=== PATIENT | male | born 1935 | race Caucasian/White ===

== ENCOUNTER 2021-05-14 08:40 | Day surgery (SDC) | payer MEDICARE, BC ==
[2021-05-14] MEDS ORDERED: Depo-Medrol 40 MG/ML IM ONE (08:41)
[2021-05-14] MEDS ORDERED: BUPIVACAINE 0.5% VIAL IJ ONE (08:41)
[2021-05-14] MEDS ORDERED: Xylocaine 1% Vial 30 ML PF IJ ONE (08:41)
--- NOTE | 2021-05-14 16:07 | XRAY ---
15 seconds of fluoroscopy was used in surgery for a right intra-articular knee injection.
== END 2021-05-14 10:53 | disposition home or self-care (01) ==
LOC: SDC-PAIN 08:40
PROVIDERS: ATTEND Psychiatry & Neurology Pain Medicine
DX: M17.11 Unilateral primary osteoarthritis, right knee (principal); E11.9 Type 2 diabetes mellitus without complications; I10 Essential (primary) hypertension; Z79.899 Other long term (current) drug therapy
CPT/HCPCS: 20610; 73560; 77002; 77003; 82947; J1030; J2001; Q9966

== ENCOUNTER 2021-05-28 09:34 | Day surgery (SDC) | payer MEDICARE, BC ==
[2021-05-28] MEDS ORDERED: BUPIVACAINE 0.5% VIAL IJ ONE (09:35)
[2021-05-28] MEDS ORDERED: Depo-Medrol 40 MG/ML IM ONE (09:35)
[2021-05-28] MEDS ORDERED: DIPRIVAN 200 MG/20 ML IV ONE (10:56)
--- NOTE | 2021-05-28 11:34 | XRAY ---
Indication: Right SI joint injection. Intraoperative fluoroscopy provided for 9 seconds. 2 digital spot images submitted for interpretation demonstrates posterior needle tip projecting over the inferior right SI joint. Correlate with intraoperative findings/report.
--- NOTE | 2021-05-28 11:36 | XRAY ---
Indication: Right hip greater trochanter bursa injection. Intraoperative fluoroscopy provided for 10 seconds. Single digital spot image obtained prone demonstrates needle tip projecting lateral to the right femur greater trochanter. Small amount of contrast injected for needle tip placement. Correlate with intraoperative findings/report.
--- NOTE | 2021-05-28 11:40 | XRAY ---
10 seconds fluoroscopy time in surgery for injection of the greater trochanter of the right hip.
--- NOTE | 2021-05-28 11:40 | XRAY ---
9 seconds fluoroscopy time in surgery for injection of the right SI joint.
[2021-05-28] MEDS ORDERED: Lactated Ringers 1,000 ML IV ONE (11:42)
== END 2021-05-28 11:25 | disposition home or self-care (01) ==
LOC: SDC-PAIN 09:34
PROVIDERS: ATTEND Psychiatry & Neurology Pain Medicine
DX: M46.1 Sacroiliitis, not elsewhere classified (principal); M70.61 Trochanteric bursitis, right hip; E11.9 Type 2 diabetes mellitus without complications; Z79.899 Other long term (current) drug therapy
CPT/HCPCS: 20610; 27096; 72020; 73501; 77002; 82947; 99100; J1030; J2704; Q9966; G0260

== ENCOUNTER 2021-12-03 08:38 | Day surgery (SDC) | payer MEDICARE, BC ==
[2021-12-03] MEDS ORDERED: BUPIVACAINE 0.5% VIAL IJ ONE (08:39)
[2021-12-03] MEDS ORDERED: Depo-Medrol 40 MG/ML IM ONE (08:39)
[2021-12-03] MEDS ORDERED: DIPRIVAN 200 MG/20 ML IV ONE (10:49)
[2021-12-03] MEDS ORDERED: Lactated Ringers 1,000 ML IV ONE (11:21)
--- NOTE | 2021-12-03 12:50 | XRAY ---
Indication: Bilateral SI joint injection. Intraoperative fluoroscopy provided for 21 seconds. 4 digital spot images submitted for interpretation demonstrates posterior needle tip projecting over the inferior left and right SI joints. Correlate with intraoperative findings/report..
--- NOTE | 2021-12-03 12:52 | XRAY ---
16 seconds fluoroscopy time in surgery for injections of both Greater trochanters.
--- NOTE | 2021-12-03 12:52 | XRAY ---
Indication: Bilateral greater trochanter bursa injection. Intraoperative fluoroscopy provided for 16 seconds. 2 digital spot image submitted for interpretation demonstrates needle tip lateral to the left and right right greater trochanter. Small amount of contrast injected for both needle tip placement. Correlate with intraoperative findings/report.
--- NOTE | 2021-12-03 12:52 | XRAY ---
21 seconds fluoroscopy time in surgery for injections of both SI joints.
== END 2021-12-03 11:20 | disposition home or self-care (01) ==
LOC: SDC-PAIN 08:38
PROVIDERS: ATTEND Psychiatry & Neurology Pain Medicine
DX: M46.1 Sacroiliitis, not elsewhere classified (principal); M70.62 Trochanteric bursitis, left hip; M70.61 Trochanteric bursitis, right hip; I10 Essential (primary) hypertension; E11.9 Type 2 diabetes mellitus without complications; Z79.899 Other long term (current) drug therapy
CPT/HCPCS: 20610; 27096; 72100; 73521; 77002; 82947; G0260; 99100; J1030; J2704; Q9966

== ENCOUNTER 2021-12-24 08:36 | Day surgery (SDC) | payer MEDICARE, BC ==
[2021-12-24] MEDS ORDERED: Depo-Medrol 40 MG/ML IM ONE (08:37)
[2021-12-24] MEDS ORDERED: Sodium Chloride 0.9% 10 ML FLUSH Syringe IJ ONE (08:37)
[2021-12-24] MEDS ORDERED: Lactated Ringers 1,000 ML IV ONE (10:47)
[2021-12-24] MEDS ORDERED: DIPRIVAN 200 MG/20 ML IV ONE (11:00)
--- NOTE | 2021-12-24 12:31 | XRAY ---
Indication: Caudal CAREN. Intraoperative fluoroscopy provided for 59 seconds. 2 digital spot image submitted for interpretation demonstrates posterior caudal needle tip projecting mid sacrum. Small amount of contrast injected for needle tip placement. Correlate with intraoperative findings/report.
--- NOTE | 2021-12-24 12:34 | XRAY ---
59 seconds fluoroscopy time in surgery for caudal CAREN.
== END 2021-12-24 11:28 | disposition home or self-care (01) ==
LOC: SDC-PAIN 08:36 → EDSTATUS 11:31
PROVIDERS: ATTEND Psychiatry & Neurology Pain Medicine
DX: M54.16 Radiculopathy, lumbar region (principal); E11.9 Type 2 diabetes mellitus without complications; Z79.899 Other long term (current) drug therapy
CPT/HCPCS: 62323; 72100; 77003; 82947; J1030; J2704; Q9966

== ENCOUNTER 2024-07-06 10:55 | Day surgery (SDC) | payer MEDICARE, BC ==
--- NOTE | 2024-07-05 08:55 | HP ---
HISTORY AND PHYSICAL HISTORY OF PRESENT ILLNESS: The patient is an 88-year-old male who presents with complaints of dysphagia. He had some chicken and steak get stuck. He has no prior dilatation in the past. He does not complain of any heartburn. PAST MEDICAL HISTORY: COPD, heart disease, thyroid, diabetes, prostate cancer, coronary artery disease, CHF, irritable bowel, hyperlipidemia, arthritis, hypertension, allergic rhinitis, PVD, TMJ, colitis, dermatitis. MEDICATIONS: Metoprolol, levothyroxine, hydroxyzine, glipizide, gabapentin, iron, Bumex, Aldactone, Tylenol, Xarelto, tamsulosin, potassium, MiraLAX, pentoxifylline, losartan, cyclobenzaprine, vitamin D. ALLERGIES: Negative. PAST SURGICAL HISTORY: Cholecystectomy, back surgery, [employer] posterior tibial artery. SOCIAL HISTORY: Negative. FAMILY HISTORY: Heart disease. REVIEW OF SYSTEMS: CONSTITUTIONAL: Denies fever or chills. CHEST: Denies shortness of breath. CARDIOVASCULAR: Denies chest pain. ABDOMEN: Denies abdominal pain. PHYSICAL EXAMINATION: GENERAL: No acute distress. CARDIOVASCULAR: Regular rate and rhythm. RESPIRATORY: Nonlabored. No shortness of breath. ABDOMEN: Soft. ASSESSMENT: Dysphagia. PLAN: EGD and possible dilatation with Dr. Marin Raymond. This report was dictated for Dr. Raymond by Poly Schulte NP.
[2024-07-06] MEDS ORDERED: Lactated Ringers 1,000 ML IV ONE (11:12)
[2024-07-06] MEDS ORDERED: Lactated Ringers 1,000 ML IV SCH (11:30)
[2024-07-06 11:35] LABS: Absolute Neutrophil Ct (ANC) 4.11 x10^3/uL (1.78-5.38); BASOPHIL % 0.6 % (0.2-1.2); Basophil (Absolute #) 0.04 x10^3/uL (0.01-0.08); Eosinophil % 7.2 % (0.8-7.0); Eosinophil (Absolute #) 0.45 x10^3/uL (0.04-0.54); Hematocrit 32.1 % (40.1-51.0); Hemoglobin 10.6 g/dL (13.7-17.5); IMMATURE GRAN # 0.07 x10^3u/L (0.001-0.031); IMMATURE GRAN % 1.1 % (0.001-0.429); Lymphocyte (Absolute #) 0.72 x10^3/uL (1.32-3.57); Lymphocytes % 11.6 % (21.8-53.1); Mean Cell Volume 95.3 fL (79.0-92.2); Mean Corpuscular Hemoglobin 31.5 pg (25.7-32.2); Mean Platelet Volume 10.5 fL (9.4-12.4); Monocyte (Absolute #) 0.84 x10^3/uL (0.30-0.82); Monocytes % 13.5 % (5.3-12.2); Platelet Count 176 x10^3/uL (163-337); Red Blood Count 3.37 x10^6/uL (4.63-6.08); Red Cell Distribution Width 14.5 % (11.6-14.4); White Blood Count 6.2 x10^3/uL (4.23-9.07)
[2024-07-06 11:37] VITALS: TEMP 97.9
[2024-07-06 11:46] LABS: ALBUMIN 3.6 g/dL (3.5-5.0); ANION GAP 12.2 MEQ/L (5-15); BILIRUBIN,TOTAL 0.7 mg/dL (0.2-1.3); Calcium 8.9 mg/dL (8.4-10.2); Creatinine 1 1.27 mg/dL (0.66-1.25); EST GLOMERULAR FILTRATION RATE 54.7 ML/MIN; Potassium 4.5 mmol/L (3.5-5.1); Total Protein 6.6 g/dL (6.3-8.2)
[2024-07-06 11:51] VITALS: RESP 18; O2SAT 97
[2024-07-06] MEDS ORDERED: DIPRIVAN 200 MG/20 ML IV ONE (13:03)
[2024-07-06 13:42] VITALS: PULSE 68
[2024-07-06 13:56] VITALS: BP 132/55
--- NOTE | 2024-07-09 19:40 | OP ---
SURGERY DATE/TIME: 07/06/2024 1302 - 1317 PREOPERATIVE DIAGNOSIS: Dysphagia. POSTOPERATIVE DIAGNOSIS: Mild esophageal stricture at the esophagogastric junction. PROCEDURE: Esophagogastroduodenoscopy with dilation to size 48 Thomas. SURGEON: Marin Raymond MD ANESTHESIA: General. COMPLICATIONS: None. CONDITION: Stable. DESCRIPTION OF PROCEDURE AND FINDINGS: Patient was brought to the endoscopy. Left lateral decubitus position. General anesthetic. Scope introduced. There was a stricture at the EG junction about a 44. He had no visible hiatal hernia, although he was almost paralyzed here with the general anesthetic. There certainly was severe reflux disease, grade 3 reflux with stricture. Fundus, body, and antrum satisfactory. Pylorus satisfactory. Duodenal bulb normal. Second portion normal. Scope withdrawn, looped upon itself. No hiatal hernia. Scope withdrawn. A size 48 bougie was placed through and then the scope was placed back through. There was satisfactory dilatation to 48. Patient tolerated the procedure satisfactorily. Findings discussed with the family in the waiting room. He needs to take his time. He needs to sit upright. He needs to chew and he needs to drink lots of liquids.
== END 2024-07-06 14:27 | disposition home or self-care (01) ==
LOC: SDC 10:55
PROVIDERS: ATTEND Surgery
DX: K22.2 Esophageal obstruction (principal); R13.10 Dysphagia, unspecified; I10 Essential (primary) hypertension; Z85.46 Personal history of malignant neoplasm of prostate; E11.9 Type 2 diabetes mellitus without complications
CPT/HCPCS: 36415; 80053; 85025; 93005; 99100; J2704